=== PATIENT | female | born 1985 | race African-American/Black ===

== ENCOUNTER 2020-08-02 04:34 | Day surgery (SDC) | payer OTHER ==
[2020-08-01 09:44] VITALS: BMI 33.4
[2020-08-02] MEDS ORDERED: LIDOCAINE HCL/PF 2% SDV 5ML VIAL ONE (13:12)
[2020-08-02] MEDS ORDERED: MIDAZOLAM HCL 2 MG/2 ML SINGLE DOSE VIAL ONE (13:12)
[2020-08-02] MEDS ORDERED: SUCCINYLCHOLINE CHLORIDE 200 MG/10 ML SYRINGE ONE (13:12)
[2020-08-02] MEDS ORDERED: PROPOFOL 20 ML ONE ×2 (13:12)
[2020-08-02] MEDS ORDERED: KETOROLAC TROMETHAMINE 30 MG/1 ML VIAL ONE (13:13)
[2020-08-02] MEDS ORDERED: ceFAZolin SODIUM 1 GM VIAL ONE (13:13)
[2020-08-02] MEDS ORDERED: DEXAMETHASONE SOD PHOSPHATE 4 MG/1 ML VIAL ONE (13:13)
[2020-08-02] MEDS ORDERED: LIDOCAINE HCL 2% JELLY (5 ML/TUBE) ONE (13:23)
[2020-08-02] MEDS ORDERED: ceFAZolin SODIUM 1 GM VIAL IVPB ONE (13:25)
[2020-08-02] MEDS ORDERED: IOHEXOL 180 MG/1 ML ML IJ ONE ×2 (13:34)
[2020-08-02 15:49] VITALS: BP 123/86; PULSE 79; TEMP 96.9
== END 2020-08-02 16:15 | disposition home or self-care (01) ==
LOC: JASU-SURG 04:34
PROVIDERS: ATTEND Urology
PROC: 0T778DZ Dilation of Left Ureter with Intraluminal Device, Via Natural or Artificial Opening Endoscopic (ICD-10-PCS; principal; 2020-08-02 14:00)
PROC: 0T778DZ Dilation of Left Ureter with Intraluminal Device, Via Natural or Artificial Opening Endoscopic (ICD-10-PCS; 2020-08-02 14:00)
DX: N13.1 Hydronephrosis with ureteral stricture, not elsewhere classified (principal)
CPT/HCPCS: 76000-TC-FY; 84703; 94760